=== PATIENT | female | born 1995 | race Asian ===

== ENCOUNTER 2016-11-29 00:16 | Emergency (ER) | payer OTHER ==
[2016-11-29 00:22] VITALS: BP 133/74
[2016-11-29] MEDS ORDERED: Naproxen TAB* 250 MG PO ONE (02:24)
[2016-11-29] MEDS ORDERED: Acetaminophen TAB* 325 MG PO ONE (02:24)
[2016-11-29] MEDS ORDERED: DOXYcycline CAP(*) 100 MG PO ONE (02:24)
[2016-11-29] MEDS ORDERED: Acetaminophen TAB* 325 MG ONE (02:28)
[2016-11-29] MEDS ORDERED: Naproxen TAB* 250 MG ONE (02:28)
[2016-11-29] MEDS ORDERED: DOXYcycline CAP(*) 100 MG ONE (02:28)
--- NOTE | 2016-11-29 02:31 | ED ---
Herminio Guo Angela, scribed for Kelly Aguilar MD on 11/29/16 at 0210 . Skin Complaint - HPI Summary HPI Summary: This pt is a 21 y/o female presenting to [facility] c/o 2 erythematous areas on her right leg that began 3 days ago. Pt reports her rash started behind her right leg 3 days ago and today at midnight she noticed another rash on top of right leg. She states her rash is painful. Pt notes she was outside 2 days ago but her rash began before then. She has not taken any pain medication. Pt denies tobacco, drug, alcohol use. - History of Current Complaint Chief Complaint: EDRashSkinAbscess Stated Complaint: RT LEG POSSIBLE INFECTION Hx Obtained From: Patient Onset/Duration: Started Days Ago Skin Exposure Onset/Duration: Days Ago Pain Intensity: 2 Skin Location: Leg - right Character: Pain, Redness Aggravating Symptom(s): Nothing Alleviating Symptom(s): Nothing - Allergy/Home Medications Allergies/Adverse Reactions: Allergies Allergy/AdvReac Type Severity Reaction Status Date / Time Sulfa Antibiotics Allergy Mild Hives Verified 11/29/16 00:22 PMH/Surg Hx/FS Hx/Imm Hx Endocrine/Hematology History: Denies: Hx Diabetes Cardiovascular History: Denies: Hx Hypertension Respiratory History: Reports: Hx Asthma Infectious Disease History: No Infectious Disease History: Denies: Traveled Outside the [place] in Last 30 Days - Family History Known Family History: Negative: Diabetes - Social History Occupation: Student - [employer] Lives: Dormitory/Roommates - roommate Alcohol Use: None Hx Substance Use: No Substance Use Type: Reports: None Hx Tobacco Use: No Smoking Status (MU): Never Smoked Tobacco Review of Systems Negative: Fever, Chills Eyes: Negative ENT: Negative Negative: Chest Pain Negative: Shortness Of Breath Negative: Abdominal Pain Positive: Rash - right leg Negative: Headache, Weakness, Paresthesia, Numbness Psychological: Normal All Other Systems Reviewed And Are Negative: Yes Physical Exam Triage Information Reviewed: Yes Vital Signs On Initial Exam: Initial Vitals Temp Pulse Resp BP Pulse Ox 97.8 F 64 15 133/74 99 11/29/16 00:19 11/29/16 00:19 11/29/16 00:19 11/29/16 00:19 11/29/16 00:19 Vital Signs Reviewed: Yes Appearance: Positive: Well-Appearing, No Pain Distress Skin: Positive: Warm, Skin Color Reflects Adequate Perfusion, Dry, Other - 2 + cm circumference of erythematous area with central bite. No central clearing. There is slight induration but no flunctuance. There is a second erythematous area in the inner thigh only 0.5 cm, with no flunctuance. Eyes: Positive: EOMI, ERUM ENT: Positive: Pharynx normal, TMs normal Neck: Positive: Supple, Nontender Respiratory/Lung Sounds: Positive: Clear to Auscultation, Breath Sounds Present. Negative: Rales, Rhonchi, Other - rales Cardiovascular: Positive: RRR. Negative: Murmur, Rub, Other - gallop Abdomen Description: Positive: Nontender, Soft. Negative: Distended, Guarding, Other: - rebound Bowel Sounds: Positive: Present Musculoskeletal: Positive: Strength/ROM Intact. Negative: Edema Left, Edema Right Neurological: Positive: Sensory/Motor Intact, Alert, Oriented to Person Place, Time, CN Intact II-III Psychiatric: Positive: Affect/Mood Appropriate Diagnostics - Vital Signs Vital Signs Temp Pulse Resp BP Pulse Ox 11/29/16 00:19 97.8 F 64 15 133/74 99 - Laboratory Lab Statement: Any lab studies that have been ordered have been reviewed, and results considered in the medical decision making process. Course/Dx - Course Course Of Treatment: 21 yo female with multiple bites to her legs right thigh with 3cm in circumference area of induraction surrounding a bite, no central clearing, no clear abscess. Will give a prophylaxis 200mg doxy for lyme and start on a week of doxy for early abscess. Pt will need 48-72 hour followup woujd check - Diagnoses Provider Diagnoses: Early abscess Discharge - Discharge Plan Condition: Stable Disposition: HOME Prescriptions: DOXYcycline CAP(*) [DOXYcycline 100MG CAP(*)] 100 mg PO BID #14 cap Naproxen Sodium [Naproxen Sodium 500 MG TAB] 500 mg PO BID #14 tab Patient Education Materials: Abscess (ED) Referrals: [facility] [Outside] Additional Instructions: Please follow up with your primary care provider. The documentation as recorded by the Herminio tatum Angela accurately reflects the service I personally performed and the decisions made by , Kelly Aguilar MD.
== END 2016-11-29 02:35 | disposition home or self-care (01) ==
LOC: ED 00:16
DX: R21 Rash and other nonspecific skin eruption (principal); L02.415 Cutaneous abscess of right lower limb
CPT/HCPCS: 99282; A9270-GY